=== PATIENT | female | born 1960 | race Two or more races ===

== ENCOUNTER 2022-06-28 15:31 | Emergency (ER) | payer BC, MEDICAID ==
[~2022-06-28] VITALS: Ht 149.9 cm; Wt 72.6 kg
[2022-06-28] MEDS ORDERED: ASPIRIN 325 MG TABLET PO ONE (16:15)
[2022-06-28] MEDS ORDERED: CEFP200T14 PO (16:20)
[2022-06-28] MEDS ORDERED: ASPIRIN 325 MG TABLET ONE (16:23)
[2022-06-28] MEDS ORDERED: nifedipine PO (16:27)
[2022-06-28] MEDS ORDERED: PANT40TA2 PO (16:27)
[2022-06-28] MEDS ORDERED: FURO80TA3 PO (16:27)
[2022-06-28] MEDS ORDERED: INSULIN GLARGINE (16:27)
[2022-06-28] MEDS ORDERED: [UNRECOGNIZED DRUG - OTHER] PO (16:27)
[2022-06-28 16:28] LABS: HEMATOCRIT 26.1 % (31.2-41.9); MEAN CORPUSCULAR HEMOGLOBIN 29.3 uug (24.7-32.8); MEAN CORPUSCULAR VOLUME 88.3 fL (75.5-95.3); PLATELET COUNT (AUTO) 487 K/uL (179-408)
[2022-06-28 16:47] LABS: CARBON DIOXIDE 21 mmol/L (21-32); CHLORIDE 108 mmol/L (98-107); CREATININE 1.9 mg/dL (0.6-1.3); GLUCOSE 191 mg/dL (74-106); POTASSIUM 4.5 mmol/L (3.5-5.1); UREA NITROGEN, BLOOD 54 mg/dL (7-18)
[2022-06-28 17:00] LABS: ALANINE AMINOTRANSFERASE 20 U/L (14-59); ALKALINE PHOSPHATASE 355 U/L (50-136); ASPARTATE AMINOTRANSFERASE 8 U/L (15-37); BILIRUBIN,DIRECT 0.1 mg/dL (0.0-0.2); BILIRUBIN,TOTAL 0.2 mg/dL (0.2-1.0); TOTAL PROTEIN, SERUM 6.7 g/dL (6.4-8.2)
[2022-06-28] MEDS ORDERED: FUROSEMIDE 40 MG/4 ML VIAL IV ONE (17:00)
[2022-06-28] MEDS ORDERED: FUROSEMIDE 40 MG/4 ML VIAL ONE (17:24)
--- NOTE | 2022-06-28 19:00 | NUR ---
Change of shift report from Gissell SAWANT
--- NOTE | 2022-06-28 20:34 | NUR ---
Dr Duvall ([facility]) on the line with Dr Marte
--- NOTE | 2022-06-28 20:35 | NUR ---
Patient accepted at [facility]. Will call us back for transfer information
--- NOTE | 2022-06-28 22:24 | NUR ---
Called [facility] for updates. Patient will be admitted to [address] 1[address]
--- NOTE | 2022-06-28 22:29 | NUR ---
report given to Ivonne SAWANT - [facility]
--- NOTE | 2022-06-28 22:34 | NUR ---
Called [facility]. ALS ambulance availability tomorrow at 1pm
--- NOTE | 2022-06-28 22:35 | NUR ---
Called [facility]. No Availability for ALS
--- NOTE | 2022-06-28 22:36 | NUR ---
Called [facility]. No ALS ambulance available
--- NOTE | 2022-06-28 22:38 | NUR ---
called [facility]. No ALS ambulance available
--- NOTE | 2022-06-28 22:44 | NUR ---
Dr Marte made aware no ALS ambulance available. Was told ok for S
--- NOTE | 2022-06-28 22:45 | NUR ---
Called [facility] ambulance for transportation to [facility]. ETA: [phone]
--- NOTE | 2022-06-29 01:11 | NUR ---
Patient Tranfers to outside Facility via [facility] Ambulance unit [id number] Physician: Dr Kumar Location: [facility]
== END 2022-06-29 01:19 | disposition short-term general hospital (02) ==
LOC: ER 15:36
DX: I50.9 Heart failure, unspecified (principal); R06.03 Acute respiratory distress; Z20.822 Contact with and (suspected) exposure to COVID-19; Z88.0 Allergy status to penicillin
CPT/HCPCS: 99285; 96374; 71045; 87426; 80076; 80048; 83880; 85025; 84484 ×3; 36415; J1940; A4663

== ENCOUNTER 2024-01-29 21:20 | Inpatient (IN) | payer BC ==
[~2024-01-29] VITALS: Ht 149.9 cm; Wt 53.5 kg
[~2024-01-29 21:20] MED LIST: CEFP200T14 PO; FURO80TA3 PO; INSULIN GLARGINE; PANT40TA2 PO; [UNRECOGNIZED DRUG - OTHER] PO; nifedipine PO
[2024-01-29] MEDS ORDERED: ESCI20TA PO (22:20)
[2024-01-29] MEDS ORDERED: HYDR100T27 PO (22:20)
[2024-01-29] MEDS ORDERED: ASPI81TA31 PO (22:20)
[2024-01-29] MEDS ORDERED: LOSA100T31 PO (22:20)
[2024-01-29] MEDS ORDERED: SPIR25TA6 PO (22:20)
[2024-01-29] MEDS ORDERED: BUME1TAB8 PO (22:20)
[2024-01-29] MEDS ORDERED: ATOR80TA PO (22:20)
[2024-01-29] MEDS ORDERED: CARV25TA2 PO (22:20)
[2024-01-29] MEDS ORDERED: NIFE90TA61 PO (22:20)
[2024-01-29] MEDS ORDERED: FERR-56 PO (22:20)
[2024-01-29] MEDS ORDERED: TICA90TA PO (22:20)
[2024-01-29 22:22] LABS: BASOPHILS # (AUTO) 0.1 K/UL (0.0-0.2); BASOPHILS % (AUTO) 0.8 % (0.0-2.0); EOSINOPHILS # (AUTO) 0.1 K/uL (0.0-0.7); HEMATOCRIT 24.6 % (31.2-41.9); HEMOGLOBIN 8.1 g/dL (10.9-14.3); LYMPHOCYTES # (AUTO) 0.7 K/uL (0.8-4.8); LYMPHOCYTES % (AUTO) 6.9 % (20.5-51.5); MEAN CORPUSCULAR HEMOGLOBIN 30.8 uug (24.7-32.8); MEAN CORPUSCULAR HGB CONC 33 g/dL (32.3-35.6); MEAN CORPUSCULAR VOLUME 93.3 fL (75.5-95.3); MONOCYTES # (AUTO) 0.8 K/uL (0.1-1.30); MONOCYTES % (AUTO) 7.7 % (0.0-11.0); NEUTROPHILS # (AUTO) 8.2 K/uL (1.8-8.9); NEUTROPHILS % (AUTO) 83.6 % (38.5-71.5); PLATELET COUNT (AUTO) 321 K/uL (179-408); RED BLOOD CELL COUNT(AUTO) 2.64 MIL/uL (3.63-4.92); RED CELL DISTRIBUTION WIDTH 16.9 % (12.3-17.7); WHITE BLOOD COUNT (AUTO) 9.8 K/uL (3.8-11.8)
[2024-01-29 22:23] LABS: DIFFERENTIAL COMMENT 1
[2024-01-29 22:33] LABS: CALCIUM 8.6 mg/dL (8.5-10.1); POTASSIUM 4.6 mmol/L (3.5-5.1)
[2024-01-29 22:45] LABS: ALBUMIN 2.7 g/dL (3.4-5.0); BILIRUBIN,TOTAL 0.6 mg/dL (0.2-1.0); TOTAL PROTEIN, SERUM 6.9 g/dL (6.4-8.2); URIC ACID 2.1 mg/dL (2.6-6.0)
[2024-01-29] MEDS ORDERED: HYDROCODONE/APAP 5-325MG TABLET ONE (22:50)
[2024-01-29] MEDS: HYDROCODONE/APAP 5-325MG TABLET PO ONE (22:53)
[2024-01-30] MEDS ORDERED: FUROSEMIDE 20 MG/2 ML VIAL ONE (00:43)
[2024-01-30] MEDS ORDERED: MORPHINE SULFATE 2 MG/1 ML DISP.SYRIN ONE (00:43)
[2024-01-30] MEDS: MORPHINE SULFATE 2 MG/1 ML DISP.SYRIN IV ONE (00:52)
[2024-01-30] MEDS: FUROSEMIDE 20 MG/2 ML VIAL IV ONE (00:52)
[2024-01-30] MEDS ORDERED: HYDROMORPHONE 1 MG/1 ML DISP.SYRIN ONE (03:47)
[2024-01-30] MEDS: HYDROMORPHONE 1 MG/1 ML DISP.SYRIN IV ONE (03:54)
[2024-01-30] MEDS ORDERED: REMEDY ESSENTIAL ZINC PASTE 113 GM TP PRN (05:00)
[2024-01-30 05:30] VITALS: BP 144/49; TEMP 98.7; O2SAT 98
[2024-01-30 06:37] LABS: BASOPHILS # (AUTO) 0.1 K/UL (0.0-0.2); EOSINOPHILS # (AUTO) 0.1 K/uL (0.0-0.7); EOSINOPHILS % (AUTO) 1.2 % (0.0-7.0); HEMATOCRIT 23.4 % (31.2-41.9); HEMOGLOBIN 7.8 g/dL (10.9-14.3); LYMPHOCYTES # (AUTO) 0.8 K/uL (0.8-4.8); LYMPHOCYTES % (AUTO) 8.2 % (20.5-51.5); MEAN CORPUSCULAR HEMOGLOBIN 31.1 uug (24.7-32.8); MEAN CORPUSCULAR HGB CONC 33 g/dL (32.3-35.6); MEAN CORPUSCULAR VOLUME 93.2 fL (75.5-95.3); MONOCYTES # (AUTO) 0.7 K/uL (0.1-1.30); MONOCYTES % (AUTO) 7.1 % (0.0-11.0); NEUTROPHILS # (AUTO) 7.7 K/uL (1.8-8.9); NEUTROPHILS % (AUTO) 82.5 % (38.5-71.5); PLATELET COUNT (AUTO) 305 K/uL (179-408); RED BLOOD CELL COUNT(AUTO) 2.51 MIL/uL (3.63-4.92); RED CELL DISTRIBUTION WIDTH 16.6 % (12.3-17.7); WHITE BLOOD COUNT (AUTO) 9.3 K/uL (3.8-11.8)
[2024-01-30 06:52] LABS: DIFFERENTIAL COMMENT 1
[2024-01-30 06:53] LABS: CALCIUM 8.8 mg/dL (8.5-10.1); CREATININE 3.4 mg/dL (0.6-1.3); MAGNESIUM 2.3 mg/dL (1.8-2.4); PHOSPHOROUS 2.2 mg/dL (2.5-4.9); POTASSIUM 4.5 mmol/L (3.5-5.1)
[2024-01-30 07:22] LABS: THYROID STIMULATING HORMONE 0.918 mIU/mL (0.358-3.740)
[2024-01-30 07:30] VITALS: BP 152/53; TEMP 98.6; O2SAT 99
[2024-01-30] MEDS: FUROSEMIDE 40 MG/4 ML VIAL IVP SCH (10:06)
[2024-01-30] MEDS: ESCITALOPRAM OXALATE 10 MG TABLET PO SCH (10:06)
[2024-01-30] MEDS: PANTOPRAZOLE SODIUM 40 MG VIAL IV SCH (10:06)
[2024-01-30] MEDS: ASPIRIN 81 MG TAB.CHEW PO SCH (10:06)
[2024-01-30] MEDS: hydrALAZINE HCL 50 MG TABLET PO SCH (10:08)
[2024-01-30] MEDS: HEPARIN SODIUM,PORCINE 5,000 UNITS/ML VIAL SQ SCH (10:08)
[2024-01-30] MEDS: NIFEdipine XL 90 MG TABSR PO SCH (10:09)
[2024-01-30] MEDS: CARVEDILOL 25 MG TABLET PO SCH (10:09)
[2024-01-30 10:19] LABS: IRON, SERUM 21 ug/dL (50-175)
[2024-01-30] MEDS: LOSARTAN POTASSIUM 50 MG TABLET PO SCH (11:19)
[2024-01-30 11:40] VITALS: BP 141/46; TEMP 99.5; O2SAT 97
[2024-01-30 12:00] VITALS: O2SAT 98
[2024-01-30] MEDS: MORPHINE SULFATE 4 MG/1 ML DISP.SYRIN IV PRN (13:29)
[2024-01-30] MEDS: ONDANSETRON 4 MG/2 ML VIAL IV PRN ×2 (13:29→18:14)
[2024-01-30] MEDS ORDERED: PROPOFOL 200 MG/20 ML BOTTLE ONE (15:35)
[2024-01-30 16:00] VITALS: BP 116/48; TEMP 98.7; O2SAT 99
[2024-01-30] MEDS ORDERED: ACETAMINOPHEN 650 MG SUPP.RECT RC PRN (17:15)
[2024-01-30] MEDS: METOCLOPRAMIDE HCL 10 MG/2 ML VIAL IV ONE (18:14)
[2024-01-30 20:00] VITALS: BP 131/59; TEMP 97.4; O2SAT 98
[2024-01-30] MEDS: ATORVASTATIN 40 MG TABLET PO SCH (21:57)
[2024-01-31] VITALS (11 sets, daily range): BP systolic 83–137; BP diastolic 34–46; TEMP 97.3–98.5; O2SAT 98–100
[2024-01-31 08:17] LABS: BASOPHILS # (AUTO) 0.1 K/UL (0.0-0.2); BASOPHILS % (AUTO) 1.3 % (0.0-2.0); EOSINOPHILS # (AUTO) 0.2 K/uL (0.0-0.7); HEMATOCRIT 23.4 % (31.2-41.9); HEMOGLOBIN 7.8 g/dL (10.9-14.3); LYMPHOCYTES # (AUTO) 0.6 K/uL (0.8-4.8); LYMPHOCYTES % (AUTO) 6.8 % (20.5-51.5); MEAN CORPUSCULAR HEMOGLOBIN 31.2 uug (24.7-32.8); MEAN CORPUSCULAR HGB CONC 34 g/dL (32.3-35.6); MEAN CORPUSCULAR VOLUME 93.1 fL (75.5-95.3); MONOCYTES # (AUTO) 0.7 K/uL (0.1-1.30); MONOCYTES % (AUTO) 7.9 % (0.0-11.0); NEUTROPHILS # (AUTO) 7.2 K/uL (1.8-8.9); PLATELET COUNT (AUTO) 317 K/uL (179-408); RED BLOOD CELL COUNT(AUTO) 2.51 MIL/uL (3.63-4.92); RED CELL DISTRIBUTION WIDTH 16.2 % (12.3-17.7); WHITE BLOOD COUNT (AUTO) 8.8 K/uL (3.8-11.8)
[2024-01-31 08:29] LABS: CREATININE 2.6 mg/dL (0.6-1.3); MAGNESIUM 2.2 mg/dL (1.8-2.4); PHOSPHOROUS 3.3 mg/dL (2.5-4.9); POTASSIUM 4.1 mmol/L (3.5-5.1)
[2024-01-31 08:31] LABS: DIFFERENTIAL COMMENT 1
[2024-01-31] MEDS: hydrALAZINE HCL 50 MG TABLET PO SCH (09:00)
[2024-01-31] MEDS: LOSARTAN POTASSIUM 50 MG TABLET PO SCH (09:38)
[2024-01-31] MEDS ORDERED: FENTANYL CITRATE 100 MCG/2 ML AMPUL ONE ×2 (13:14→15:48)
[2024-01-31] MEDS ORDERED: MIDAZOLAM HCL 2 MG/2 ML VIAL ONE (13:15)
[2024-01-31] MEDS ORDERED: VANCOMYCIN 1000 MG VIAL ONE (13:54)
[2024-01-31] MEDS ORDERED: CLINDAMYCIN 600 MG PIGGYBACK**ER OMNI IV ONE (14:09)
[2024-01-31 16:21] LABS: BASOPHILS # (AUTO) 0.1 K/UL (0.0-0.2); BASOPHILS % (AUTO) 1.4 % (0.0-2.0); EOSINOPHILS # (AUTO) 0.1 K/uL (0.0-0.7); EOSINOPHILS % (AUTO) 1.6 % (0.0-7.0); LYMPHOCYTES # (AUTO) 0.7 K/uL (0.8-4.8); LYMPHOCYTES % (AUTO) 9.3 % (20.5-51.5); MEAN CORPUSCULAR HEMOGLOBIN 30.6 uug (24.7-32.8); MEAN CORPUSCULAR HGB CONC 33 g/dL (32.3-35.6); MEAN CORPUSCULAR VOLUME 93.7 fL (75.5-95.3); MONOCYTES # (AUTO) 0.7 K/uL (0.1-1.30); MONOCYTES % (AUTO) 9.3 % (0.0-11.0); NEUTROPHILS # (AUTO) 5.9 K/uL (1.8-8.9); NEUTROPHILS % (AUTO) 78.4 % (38.5-71.5); PLATELET COUNT (AUTO) 291 K/uL (179-408); WHITE BLOOD COUNT (AUTO) 7.6 K/uL (3.8-11.8)
[2024-01-31 16:30] LABS: DIFFERENTIAL COMMENT 1; RED BLOOD CELL COUNT(AUTO) 2.24 MIL/uL (3.63-4.92)
[2024-01-31 16:31] LABS: HEMOGLOBIN 6.9 g/dL (10.9-14.3)
[2024-01-31 16:34] LABS: LYMPHOCYTES % (MANUAL) 0 % (20-40); NEUTROPHILS % (MANUAL) 0 % (42-75)
[2024-01-31] MEDS ORDERED: ALBUMIN HUMAN 5% 250 ML ONE (16:43)
[2024-01-31] MEDS: IV D5W-0.45% NS +20 KCL 1,000 ML IV PRN (18:50)
[2024-01-31] MEDS: NIFEdipine XL 90 MG TABSR PO SCH (21:00)
[2024-01-31] MEDS: CLINDAMYCIN PHOSPHATE IV 600 MG in IV DEXTROSE 5% 100 ML IV SCH (21:25)
[2024-02-01] VITALS (10 sets, daily range): BP systolic 77–143; BP diastolic 37–54; TEMP 97.7–101.2; O2SAT 97–99
[2024-02-01 08:13] LABS: BASOPHILS # (AUTO) 0.1 K/UL (0.0-0.2); BASOPHILS % (AUTO) 1.1 % (0.0-2.0); EOSINOPHILS % (AUTO) 0.1 % (0.0-7.0); HEMATOCRIT 22.9 % (31.2-41.9); LYMPHOCYTES # (AUTO) 0.5 K/uL (0.8-4.8); LYMPHOCYTES % (AUTO) 5.8 % (20.5-51.5); MEAN CORPUSCULAR HEMOGLOBIN 30.3 uug (24.7-32.8); MEAN CORPUSCULAR HGB CONC 35 g/dL (32.3-35.6); MEAN CORPUSCULAR VOLUME 87.3 fL (75.5-95.3); MONOCYTES # (AUTO) 1.1 K/uL (0.1-1.30); MONOCYTES % (AUTO) 11.2 % (0.0-11.0); NEUTROPHILS # (AUTO) 7.7 K/uL (1.8-8.9); NEUTROPHILS % (AUTO) 81.8 % (38.5-71.5); PLATELET COUNT (AUTO) 219 K/uL (179-408); RED BLOOD CELL COUNT(AUTO) 2.63 MIL/uL (3.63-4.92); RED CELL DISTRIBUTION WIDTH 15.2 % (12.3-17.7); WHITE BLOOD COUNT (AUTO) 9.4 K/uL (3.8-11.8)
[2024-02-01 08:31] LABS: DIFFERENTIAL COMMENT 1
[2024-02-01 08:36] LABS: ALBUMIN 2.2 g/dL (3.4-5.0); BILIRUBIN,TOTAL 0.9 mg/dL (0.2-1.0); CALCIUM 7.9 mg/dL (8.5-10.1); POTASSIUM 3.7 mmol/L (3.5-5.1); TOTAL PROTEIN, SERUM 5.8 g/dL (6.4-8.2)
[2024-02-01] MEDS: ACETAMINOPHEN 325 MG TABLET PO PRN (08:38)
[2024-02-01] MEDS: HEPARIN SODIUM,PORCINE 5,000 UNITS/ML VIAL SQ SCH (09:00)
[2024-02-01 12:07] LABS: HEPATITIS B SURFACE AB, QUAL Reactive (.); HEPATITIS B SURFACE AG Negative (Negative)
[2024-02-01] MEDS: DOCUSATE SODIUM 100 MG CAPSULE PO SCH (17:28)
[2024-02-02] VITALS (62 sets, daily range): BP systolic 60–156; BP diastolic 11–93; TEMP 98.1–100.1; O2SAT 97–100
[2024-02-02] MEDS: MIDODRINE HCL 5 MG TABLET PO ONE (04:51)
[2024-02-02] MEDS: IV NORMAL SALINE 500 ML IV ONE (04:52)
[2024-02-02 05:31] LABS: LYMPHOCYTES # (AUTO) 0.7 K/uL (0.8-4.8); MONOCYTES # (AUTO) 1.1 K/uL (0.1-1.30)
[2024-02-02 05:32] LABS: BASOPHILS % (AUTO) 0.4 % (0.0-2.0); EOSINOPHILS % (AUTO) 0.5 % (0.0-7.0); LYMPHOCYTES % (AUTO) 7.1 % (20.5-51.5); MEAN CORPUSCULAR HGB CONC 35 g/dL (32.3-35.6); MEAN CORPUSCULAR VOLUME 88.7 fL (75.5-95.3); MONOCYTES % (AUTO) 11.8 % (0.0-11.0); NEUTROPHILS # (AUTO) 7.5 K/uL (1.8-8.9); NEUTROPHILS % (AUTO) 80.2 % (38.5-71.5); PLATELET COUNT (AUTO) 183 K/uL (179-408); RED CELL DISTRIBUTION WIDTH 15.2 % (12.3-17.7); WHITE BLOOD COUNT (AUTO) 9.3 K/uL (3.8-11.8)
[2024-02-02 05:41] LABS: RED BLOOD CELL COUNT(AUTO) 1.93 MIL/uL (3.63-4.92)
[2024-02-02 05:44] LABS: HEMATOCRIT 17.1 % (31.2-41.9)
[2024-02-02 05:45] LABS: DIFFERENTIAL COMMENT 1
[2024-02-02] MEDS: IV NS 1000 ML 1,000 ML IV ONE (06:21)
[2024-02-02] MEDS: ALBUMIN HUMAN 25% 50 ML IV ONE (06:22)
[2024-02-02] MEDS: PANTOPRAZOLE SODIUM 40 MG TABLET.DR PO SCH (06:22)
[2024-02-02 06:26] LABS: BAND % (MANUAL) 2 % (0-10); LYMPHOCYTES % (MANUAL) 12 % (20-40); MONOCYTES % (MANUAL) 6 % (2-10); NEUTROPHILS % (MANUAL) 80 % (42-75)
[2024-02-02 06:27] LABS: HYPOCHROMASIA 1+; PLATELET ESTIMATE ADEQUATE
[2024-02-02 06:28] LABS: ANISOCYTOSIS 1+
[2024-02-02 09:16] LABS: CALCIUM 7.6 mg/dL (8.5-10.1); CREATININE 3.4 mg/dL (0.6-1.3); POTASSIUM 4.3 mmol/L (3.5-5.1)
[2024-02-02] MEDS: IV NORMAL SALINE 500 ML BAG IV ONE (09:20)
[2024-02-02 09:22] LABS: ALBUMIN 1.9 g/dL (3.4-5.0); BILIRUBIN,TOTAL 0.6 mg/dL (0.2-1.0); TOTAL PROTEIN, SERUM 5.3 g/dL (6.4-8.2)
[2024-02-02] MEDS: NOREPINEPHRINE BITARTRATE 8 MG in IV NORMAL SALINE 242 ML IV PRN (09:25)
[2024-02-02] MEDS: PHYTONADIONE 10 MG/1 ML AMPUL SQ ONE ×2 (11:00→11:15)
[2024-02-02] MEDS ORDERED: IOHEXOL 300MG/ML 100 ML INFUS..BTL ONE (14:04)
[2024-02-02] MEDS ORDERED: IV NORMAL SALINE 250 ML IV ONE (14:04)
[2024-02-02] MEDS ORDERED: SWABABLE VALVE TRANSFER SET EA MC ONE (14:04)
[2024-02-02] MEDS: MORPHINE SULFATE 2 MG/1 ML DISP.SYRIN IV PRN (14:49)
[2024-02-02 16:27] LABS: HEMATOCRIT 27.8 % (31.2-41.9); HEMOGLOBIN 9.5 g/dL (10.9-14.3)
[2024-02-02] MEDS: MAGNESIUM HYDROXIDE 30 ML LIQUID UDC PO PRN (21:18)
[2024-02-02 22:12] LABS: HEMATOCRIT 26.6 % (31.2-41.9); HEMOGLOBIN 9.3 g/dL (10.9-14.3)
[2024-02-03] VITALS (42 sets, daily range): BP systolic 116–141; BP diastolic 36–78; TEMP 97.5–98; O2SAT 97–100
[2024-02-03 00:49] LABS: HEMATOCRIT 25.6 % (31.2-41.9); HEMOGLOBIN 8.8 g/dL (10.9-14.3)
[2024-02-03 05:27] LABS: BASOPHILS # (AUTO) 0.1 K/UL (0.0-0.2); BASOPHILS % (AUTO) 0.8 % (0.0-2.0); EOSINOPHILS # (AUTO) 0.1 K/uL (0.0-0.7); EOSINOPHILS % (AUTO) 0.6 % (0.0-7.0); HEMATOCRIT 24.7 % (31.2-41.9); HEMOGLOBIN 8.7 g/dL (10.9-14.3); LYMPHOCYTES # (AUTO) 0.5 K/uL (0.8-4.8); LYMPHOCYTES % (AUTO) 5.2 % (20.5-51.5); MEAN CORPUSCULAR HEMOGLOBIN 30.7 uug (24.7-32.8); MEAN CORPUSCULAR HGB CONC 35 g/dL (32.3-35.6); MEAN CORPUSCULAR VOLUME 87.2 fL (75.5-95.3); MONOCYTES # (AUTO) 0.9 K/uL (0.1-1.30); MONOCYTES % (AUTO) 8.3 % (0.0-11.0); NEUTROPHILS # (AUTO) 8.9 K/uL (1.8-8.9); NEUTROPHILS % (AUTO) 85.1 % (38.5-71.5); PLATELET COUNT (AUTO) 235 K/uL (179-408); RED BLOOD CELL COUNT(AUTO) 2.83 MIL/uL (3.63-4.92); WHITE BLOOD COUNT (AUTO) 10.4 K/uL (3.8-11.8)
[2024-02-03 06:25] LABS: CALCIUM 7.7 mg/dL (8.5-10.1); CREATININE 2.3 mg/dL (0.6-1.3); DIFFERENTIAL COMMENT 1; PHOSPHOROUS 3.5 mg/dL (2.5-4.9); POTASSIUM 3.5 mmol/L (3.5-5.1)
[2024-02-03 08:10] LABS: HEMATOCRIT 24.4 % (31.2-41.9); HEMOGLOBIN 8.6 g/dL (10.9-14.3)
[2024-02-03] MEDS: HYDROCODONE/APAP 10-325 MG TABLET PO PRN (09:16)
[2024-02-03] MEDS: PANTOPRAZOLE SODIUM 40 MG VIAL IV SCH (12:16)
[2024-02-03] MEDS: ZOLPIDEM 5 MG TABLET PO PRN (23:01)
[2024-02-04 07:36] LABS: BASOPHILS % (AUTO) 0.5 % (0.0-2.0); EOSINOPHILS # (AUTO) 0.3 K/uL (0.0-0.7); EOSINOPHILS % (AUTO) 3.3 % (0.0-7.0); HEMATOCRIT 22.3 % (31.2-41.9); HEMOGLOBIN 7.8 g/dL (10.9-14.3); LYMPHOCYTES # (AUTO) 0.7 K/uL (0.8-4.8); LYMPHOCYTES % (AUTO) 8.5 % (20.5-51.5); MEAN CORPUSCULAR HGB CONC 35 g/dL (32.3-35.6); MEAN CORPUSCULAR VOLUME 88.2 fL (75.5-95.3); MONOCYTES # (AUTO) 0.7 K/uL (0.1-1.30); MONOCYTES % (AUTO) 9.1 % (0.0-11.0); NEUTROPHILS # (AUTO) 6.4 K/uL (1.8-8.9); NEUTROPHILS % (AUTO) 78.6 % (38.5-71.5); PLATELET COUNT (AUTO) 232 K/uL (179-408); RED BLOOD CELL COUNT(AUTO) 2.53 MIL/uL (3.63-4.92); WHITE BLOOD COUNT (AUTO) 8.1 K/uL (3.8-11.8)
[2024-02-04 07:44] LABS: DIFFERENTIAL COMMENT 1
[2024-02-04 07:54] LABS: CREATININE 3.5 mg/dL (0.6-1.3); MAGNESIUM 2.4 mg/dL (1.8-2.4); PHOSPHOROUS 3.3 mg/dL (2.5-4.9); POTASSIUM 4.3 mmol/L (3.5-5.1)
[2024-02-04 08:19] VITALS: BP 139/42; TEMP 97.9; O2SAT 99
[2024-02-04 12:00] VITALS: BP 147/50; TEMP 98.3; O2SAT 99
[2024-02-04 15:49] VITALS: BP 142/61; TEMP 98.7; O2SAT 99
[2024-02-04 20:20] LABS: HEMATOCRIT 25.9 % (31.2-41.9); HEMOGLOBIN 8.8 g/dL (10.9-14.3)
[2024-02-04 23:42] VITALS: O2SAT 99
[2024-02-05] VITALS (8 sets, daily range): BP systolic 113–182; BP diastolic 54–62; TEMP 97.8–99.1; O2SAT 97–100
[2024-02-05] MEDS: ENALAPRILAT DIHYDRATE 1.25 MG/1 ML VIAL IV PRN (03:58)
[2024-02-05 07:09] LABS: BASOPHILS # (AUTO) 0.1 K/UL (0.0-0.2); BASOPHILS % (AUTO) 0.7 % (0.0-2.0); EOSINOPHILS # (AUTO) 0.1 K/uL (0.0-0.7); EOSINOPHILS % (AUTO) 1.5 % (0.0-7.0); HEMOGLOBIN 8.9 g/dL (10.9-14.3); LYMPHOCYTES # (AUTO) 0.5 K/uL (0.8-4.8); LYMPHOCYTES % (AUTO) 5.7 % (20.5-51.5); MEAN CORPUSCULAR HEMOGLOBIN 30.9 uug (24.7-32.8); MEAN CORPUSCULAR HGB CONC 34 g/dL (32.3-35.6); MEAN CORPUSCULAR VOLUME 89.7 fL (75.5-95.3); MONOCYTES # (AUTO) 0.9 K/uL (0.1-1.30); MONOCYTES % (AUTO) 9.1 % (0.0-11.0); NEUTROPHILS # (AUTO) 7.9 K/uL (1.8-8.9); PLATELET COUNT (AUTO) 308 K/uL (179-408); RED CELL DISTRIBUTION WIDTH 15.2 % (12.3-17.7); WHITE BLOOD COUNT (AUTO) 9.5 K/uL (3.8-11.8)
[2024-02-05 07:40] LABS: CALCIUM 8.5 mg/dL (8.5-10.1); CREATININE 2.6 mg/dL (0.6-1.3); MAGNESIUM 2.5 mg/dL (1.8-2.4); PHOSPHOROUS 2.6 mg/dL (2.5-4.9); POTASSIUM 4.4 mmol/L (3.5-5.1)
[2024-02-05 07:49] LABS: DIFFERENTIAL COMMENT 1
[2024-02-05] MEDS: DOCUSATE SODIUM 100 MG CAPSULE PO SCH (09:00)
[2024-02-05] MEDS: MIRALAX 17 GM POWD.PACK PO SCH (09:06)
[2024-02-05 09:17] LABS: *OCCULT BLOOD STOOL POSITIVE (NEGATIVE)
[2024-02-06] VITALS (7 sets, daily range): BP systolic 148–197; BP diastolic 55–93; TEMP 97.6–98.7; O2SAT 96–100
[2024-02-06] MEDS: CARVEDILOL 25 MG TABLET PO SCH (08:15)
[2024-02-06] MEDS ORDERED: PROPOFOL 200 MG/20 ML BOTTLE ONE (10:00)
[2024-02-07] VITALS (7 sets, daily range): BP systolic 93–190; BP diastolic 35–83; TEMP 97.6–99.5; O2SAT 95–98
[2024-02-07 08:01] LABS: BASOPHILS # (AUTO) 0.1 K/UL (0.0-0.2); EOSINOPHILS # (AUTO) 0.2 K/uL (0.0-0.7); EOSINOPHILS % (AUTO) 2.7 % (0.0-7.0); HEMATOCRIT 26.4 % (31.2-41.9); HEMOGLOBIN 9.1 g/dL (10.9-14.3); LYMPHOCYTES # (AUTO) 0.8 K/uL (0.8-4.8); LYMPHOCYTES % (AUTO) 9.1 % (20.5-51.5); MEAN CORPUSCULAR HEMOGLOBIN 30.6 uug (24.7-32.8); MEAN CORPUSCULAR HGB CONC 35 g/dL (32.3-35.6); MEAN CORPUSCULAR VOLUME 88.7 fL (75.5-95.3); MONOCYTES # (AUTO) 0.7 K/uL (0.1-1.30); MONOCYTES % (AUTO) 7.7 % (0.0-11.0); NEUTROPHILS # (AUTO) 7.1 K/uL (1.8-8.9); NEUTROPHILS % (AUTO) 79.5 % (38.5-71.5); PLATELET COUNT (AUTO) 383 K/uL (179-408); RED BLOOD CELL COUNT(AUTO) 2.98 MIL/uL (3.63-4.92); RED CELL DISTRIBUTION WIDTH 14.7 % (12.3-17.7); WHITE BLOOD COUNT (AUTO) 8.9 K/uL (3.8-11.8)
[2024-02-07 08:02] LABS: DIFFERENTIAL COMMENT 1
[2024-02-07 08:10] LABS: CALCIUM 8.3 mg/dL (8.5-10.1); CREATININE 2.8 mg/dL (0.6-1.3); POTASSIUM 4.2 mmol/L (3.5-5.1)
[2024-02-07] MEDS: NIFEdipine XL 90 MG TABSR PO SCH (08:15)
[2024-02-07] MEDS: LOSARTAN POTASSIUM 50 MG TABLET PO SCH (08:45)
[2024-02-07 18:50] LABS: HEMATOCRIT 25.3 % (31.2-41.9); HEMOGLOBIN 8.6 g/dL (10.9-14.3)
[2024-02-08] VITALS (9 sets, daily range): BP systolic 141–182; BP diastolic 50–68; TEMP 97.6–99; O2SAT 96–99
[2024-02-08 07:16] LABS: BASOPHILS # (AUTO) 0.1 K/UL (0.0-0.2); BASOPHILS % (AUTO) 0.9 % (0.0-2.0); EOSINOPHILS # (AUTO) 0.3 K/uL (0.0-0.7); EOSINOPHILS % (AUTO) 3.5 % (0.0-7.0); HEMATOCRIT 24.7 % (31.2-41.9); HEMOGLOBIN 8.6 g/dL (10.9-14.3); LYMPHOCYTES # (AUTO) 1.1 K/uL (0.8-4.8); LYMPHOCYTES % (AUTO) 11.4 % (20.5-51.5); MEAN CORPUSCULAR HEMOGLOBIN 30.5 uug (24.7-32.8); MEAN CORPUSCULAR HGB CONC 35 g/dL (32.3-35.6); MEAN CORPUSCULAR VOLUME 87.4 fL (75.5-95.3); MONOCYTES # (AUTO) 0.8 K/uL (0.1-1.30); MONOCYTES % (AUTO) 8.7 % (0.0-11.0); NEUTROPHILS # (AUTO) 7.2 K/uL (1.8-8.9); NEUTROPHILS % (AUTO) 75.5 % (38.5-71.5); PLATELET COUNT (AUTO) 396 K/uL (179-408); RED BLOOD CELL COUNT(AUTO) 2.82 MIL/uL (3.63-4.92); RED CELL DISTRIBUTION WIDTH 14.1 % (12.3-17.7); WHITE BLOOD COUNT (AUTO) 9.5 K/uL (3.8-11.8)
[2024-02-08 07:21] LABS: DIFFERENTIAL COMMENT 1
[2024-02-08 07:40] LABS: ALBUMIN 1.8 g/dL (3.4-5.0); BILIRUBIN,TOTAL 0.5 mg/dL (0.2-1.0); CALCIUM 8.1 mg/dL (8.5-10.1); CREATININE 3.4 mg/dL (0.6-1.3); MAGNESIUM 2.5 mg/dL (1.8-2.4); PHOSPHOROUS 2.6 mg/dL (2.5-4.9); POTASSIUM 4.1 mmol/L (3.5-5.1); TOTAL PROTEIN, SERUM 5.9 g/dL (6.4-8.2)
[2024-02-08] MEDS ORDERED: PANT40TA2 PO (12:53)
[2024-02-08] MEDS ORDERED: HYDR-3972 PO (12:53)
[2024-02-08] MEDS ORDERED: DOCU-141 PO (12:53)
[2024-02-08] MEDS: hydrALAZINE HCL 20 MG/1 ML VIAL IV ONE (18:29)
[2024-02-09 06:00] VITALS: BP 182/68; TEMP 98.5; O2SAT 100
[2024-02-09 12:00] VITALS: BP 178/60; TEMP 98; O2SAT 98
[2024-02-09 15:55] VITALS: O2SAT 99
[2024-02-09] MEDS ORDERED: NIFEdipine XL 90 MG TABSR PO SCH (16:00)
[2024-02-09 16:07] VITALS: BP 166/60; TEMP 98.3; O2SAT 99
[2024-02-09 20:00] VITALS: BP 167/54; TEMP 98.9; O2SAT 100
[2024-02-10] VITALS (7 sets, daily range): BP systolic 139–182; BP diastolic 48–65; TEMP 98–99; O2SAT 97–99
[2024-02-10] MEDS: BISACODYL 10 MG SUPP.RECT RC PRN (05:37)
[2024-02-10] MEDS: hydrALAZINE HCL 20 MG/1 ML VIAL IV PRN (06:11)
[2024-02-10] MEDS: hydrALAZINE HCL 50 MG TABLET PO SCH (06:30)
[2024-02-10] MEDS: NIFEdipine XL 90 MG TABSR PO SCH (20:47)
[2024-02-11 05:48] VITALS: BP 112/48; TEMP 97.9; O2SAT 99
[2024-02-11 11:16] VITALS: BP 107/71; TEMP 98; O2SAT 97
[2024-02-11 15:40] VITALS: BP 117/48; TEMP 98; O2SAT 100
[2024-02-11 16:04] VITALS: O2SAT 98
[2024-02-11 16:36] LABS: CREATININE 3.7 mg/dL (0.6-1.3); POTASSIUM 4.4 mmol/L (3.5-5.1)
[2024-02-11 20:41] VITALS: BP 148/59; TEMP 98.2; O2SAT 98
[2024-02-12] VITALS (8 sets, daily range): BP systolic 95–151; BP diastolic 41–66; TEMP 97.9–98.6; O2SAT 97–100
[2024-02-12 07:39] LABS: BASOPHILS # (AUTO) 0.2 K/UL (0.0-0.2); BASOPHILS % (AUTO) 1.8 % (0.0-2.0); EOSINOPHILS # (AUTO) 0.3 K/uL (0.0-0.7); EOSINOPHILS % (AUTO) 3.4 % (0.0-7.0); HEMATOCRIT 25.2 % (31.2-41.9); LYMPHOCYTES # (AUTO) 0.9 K/uL (0.8-4.8); LYMPHOCYTES % (AUTO) 9.9 % (20.5-51.5); MEAN CORPUSCULAR HEMOGLOBIN 31.2 uug (24.7-32.8); MEAN CORPUSCULAR HGB CONC 36 g/dL (32.3-35.6); MEAN CORPUSCULAR VOLUME 87.5 fL (75.5-95.3); MONOCYTES # (AUTO) 0.7 K/uL (0.1-1.30); MONOCYTES % (AUTO) 7.9 % (0.0-11.0); NEUTROPHILS # (AUTO) 6.6 K/uL (1.8-8.9); PLATELET COUNT (AUTO) 418 K/uL (179-408); RED BLOOD CELL COUNT(AUTO) 2.88 MIL/uL (3.63-4.92); RED CELL DISTRIBUTION WIDTH 14.5 % (12.3-17.7); WHITE BLOOD COUNT (AUTO) 8.6 K/uL (3.8-11.8)
[2024-02-12 07:44] LABS: DIFFERENTIAL COMMENT 1
[2024-02-12 08:04] LABS: CALCIUM 8.3 mg/dL (8.5-10.1); CREATININE 2.5 mg/dL (0.6-1.3); MAGNESIUM 2.1 mg/dL (1.8-2.4); PHOSPHOROUS 2.5 mg/dL (2.5-4.9); POTASSIUM 3.8 mmol/L (3.5-5.1)
[2024-02-13 04:29] VITALS: O2SAT 99
[2024-02-13 05:53] VITALS: BP 99/60; TEMP 98.6
[2024-02-13 12:00] VITALS: BP 120/50; TEMP 97.6
[2024-02-13 14:17] VITALS: O2SAT 99
[2024-02-13 16:00] VITALS: BP 139/52; TEMP 98; O2SAT 99
[2024-02-13 20:52] VITALS: BP 138/51; TEMP 98.7; O2SAT 99
[2024-02-14 04:07] VITALS: O2SAT 99
[2024-02-14 04:25] VITALS: BP 137/47; TEMP 98.4; O2SAT 98
[2024-02-14 07:06] LABS: BASOPHILS # (AUTO) 0.2 K/UL (0.0-0.2); BASOPHILS % (AUTO) 2.1 % (0.0-2.0); EOSINOPHILS # (AUTO) 0.3 K/uL (0.0-0.7); EOSINOPHILS % (AUTO) 2.9 % (0.0-7.0); HEMATOCRIT 23.8 % (31.2-41.9); HEMOGLOBIN 8.4 g/dL (10.9-14.3); LYMPHOCYTES % (AUTO) 11.1 % (20.5-51.5); MEAN CORPUSCULAR HEMOGLOBIN 31.1 uug (24.7-32.8); MEAN CORPUSCULAR HGB CONC 35 g/dL (32.3-35.6); MEAN CORPUSCULAR VOLUME 87.7 fL (75.5-95.3); MONOCYTES # (AUTO) 0.6 K/uL (0.1-1.30); MONOCYTES % (AUTO) 7.3 % (0.0-11.0); NEUTROPHILS # (AUTO) 6.8 K/uL (1.8-8.9); NEUTROPHILS % (AUTO) 76.6 % (38.5-71.5); PLATELET COUNT (AUTO) 365 K/uL (179-408); RED BLOOD CELL COUNT(AUTO) 2.71 MIL/uL (3.63-4.92); RED CELL DISTRIBUTION WIDTH 14.7 % (12.3-17.7); WHITE BLOOD COUNT (AUTO) 8.9 K/uL (3.8-11.8)
[2024-02-14 07:22] LABS: CALCIUM 8.2 mg/dL (8.5-10.1); CREATININE 2.4 mg/dL (0.6-1.3); PHOSPHOROUS 2.8 mg/dL (2.5-4.9); POTASSIUM 3.7 mmol/L (3.5-5.1)
[2024-02-14 07:30] LABS: DIFFERENTIAL COMMENT 1
[2024-02-14 11:52] VITALS: BP 104/44; TEMP 98.2; O2SAT 100
[2024-02-14 16:19] VITALS: BP 126/46; TEMP 98.2; O2SAT 99
[2024-02-14] MEDS: NEPRO (VANILLA) 237 ML CAN PO SCH (16:42)
[2024-02-14] MEDS: PANTOPRAZOLE SODIUM 40 MG TABLET.DR PO SCH (17:27)
[2024-02-14 20:00] VITALS: BP 126/57; TEMP 99.2; O2SAT 98
[2024-02-14 22:11] VITALS: O2SAT 99
[2024-02-15 06:00] VITALS: BP 142/58; TEMP 98.1; O2SAT 99
[2024-02-15 06:52] LABS: BASOPHILS # (AUTO) 0.2 K/UL (0.0-0.2); BASOPHILS % (AUTO) 2.1 % (0.0-2.0); EOSINOPHILS # (AUTO) 0.3 K/uL (0.0-0.7); EOSINOPHILS % (AUTO) 3.7 % (0.0-7.0); HEMATOCRIT 26.8 % (31.2-41.9); LYMPHOCYTES # (AUTO) 1.1 K/uL (0.8-4.8); LYMPHOCYTES % (AUTO) 12.4 % (20.5-51.5); MEAN CORPUSCULAR HEMOGLOBIN 29.7 uug (24.7-32.8); MEAN CORPUSCULAR HGB CONC 34 g/dL (32.3-35.6); MEAN CORPUSCULAR VOLUME 88.7 fL (75.5-95.3); MONOCYTES # (AUTO) 0.6 K/uL (0.1-1.30); NEUTROPHILS # (AUTO) 6.5 K/uL (1.8-8.9); NEUTROPHILS % (AUTO) 74.8 % (38.5-71.5); PLATELET COUNT (AUTO) 353 K/uL (179-408); RED BLOOD CELL COUNT(AUTO) 3.02 MIL/uL (3.63-4.92); RED CELL DISTRIBUTION WIDTH 14.9 % (12.3-17.7); WHITE BLOOD COUNT (AUTO) 8.6 K/uL (3.8-11.8)
[2024-02-15 07:00] LABS: CALCIUM 8.1 mg/dL (8.5-10.1); CREATININE 3.2 mg/dL (0.6-1.3); POTASSIUM 4.4 mmol/L (3.5-5.1)
[2024-02-15 07:06] LABS: DIFFERENTIAL COMMENT 1
[2024-02-15] MEDS: IV NORMAL SALINE 250 ML IV ONE ×2 (09:36→11:41)
[2024-02-15] MEDS ORDERED: IV NORMAL SALINE 500 ML BAG IV ONE (11:30)
[2024-02-15 11:58] VITALS: BP 90/31; TEMP 97.9; O2SAT 98
[2024-02-15 16:19] VITALS: BP 116/46; TEMP 98.8; O2SAT 99
[2024-02-15 20:00] VITALS: BP 154/51; TEMP 98.6; O2SAT 96
[2024-02-15] MEDS: SIMETHICONE 80 MG TAB.CHEW PO SCH (21:00)
[2024-02-15] MEDS: METOCLOPRAMIDE HCL 10 MG/2 ML VIAL IV SCH (21:53)
[2024-02-15] MEDS ORDERED: METOCLOPRAMIDE HCL 10 MG/2 ML VIAL IV SCH ×2 (22:00)
[2024-02-16 05:05] VITALS: O2SAT 99
[2024-02-16 06:00] VITALS: BP 182/60; TEMP 98.4; O2SAT 99
[2024-02-16 07:44] LABS: BASOPHILS # (AUTO) 0.2 K/UL (0.0-0.2); BASOPHILS % (AUTO) 2.3 % (0.0-2.0); EOSINOPHILS # (AUTO) 0.2 K/uL (0.0-0.7); EOSINOPHILS % (AUTO) 3.1 % (0.0-7.0); HEMATOCRIT 24.9 % (31.2-41.9); HEMOGLOBIN 8.5 g/dL (10.9-14.3); LYMPHOCYTES # (AUTO) 0.9 K/uL (0.8-4.8); LYMPHOCYTES % (AUTO) 11.8 % (20.5-51.5); MEAN CORPUSCULAR HEMOGLOBIN 30.4 uug (24.7-32.8); MEAN CORPUSCULAR HGB CONC 34 g/dL (32.3-35.6); MEAN CORPUSCULAR VOLUME 88.7 fL (75.5-95.3); MONOCYTES # (AUTO) 0.6 K/uL (0.1-1.30); NEUTROPHILS % (AUTO) 75.8 % (38.5-71.5); PLATELET COUNT (AUTO) 335 K/uL (179-408); RED BLOOD CELL COUNT(AUTO) 2.81 MIL/uL (3.63-4.92); RED CELL DISTRIBUTION WIDTH 14.6 % (12.3-17.7)
[2024-02-16 07:53] LABS: DIFFERENTIAL COMMENT 1
[2024-02-16 07:57] LABS: CALCIUM 7.9 mg/dL (8.5-10.1); CREATININE 3.5 mg/dL (0.6-1.3); POTASSIUM 4.4 mmol/L (3.5-5.1)
[2024-02-16 11:28] VITALS: BP 164/50; TEMP 99; O2SAT 100
[2024-02-16] MEDS: LACTULOSE 20 G/30 ML LIQUID UDC PO ONE (12:40)
[2024-02-16 16:02] VITALS: BP 177/60; TEMP 98.5; O2SAT 97
[2024-02-16 22:00] VITALS: BP 135/55; TEMP 98.5; O2SAT 97
[2024-02-17 06:00] VITALS: BP 140/75; TEMP 98.5; O2SAT 97
[2024-02-17 07:03] LABS: BASOPHILS # (AUTO) 0.2 K/UL (0.0-0.2); BASOPHILS % (AUTO) 2.6 % (0.0-2.0); EOSINOPHILS # (AUTO) 0.2 K/uL (0.0-0.7); EOSINOPHILS % (AUTO) 2.7 % (0.0-7.0); HEMATOCRIT 24.1 % (31.2-41.9); HEMOGLOBIN 8.3 g/dL (10.9-14.3); LYMPHOCYTES # (AUTO) 0.9 K/uL (0.8-4.8); LYMPHOCYTES % (AUTO) 12.3 % (20.5-51.5); MEAN CORPUSCULAR HEMOGLOBIN 30.2 uug (24.7-32.8); MEAN CORPUSCULAR HGB CONC 34 g/dL (32.3-35.6); MEAN CORPUSCULAR VOLUME 88.1 fL (75.5-95.3); MONOCYTES # (AUTO) 0.6 K/uL (0.1-1.30); MONOCYTES % (AUTO) 7.3 % (0.0-11.0); NEUTROPHILS # (AUTO) 5.7 K/uL (1.8-8.9); NEUTROPHILS % (AUTO) 75.1 % (38.5-71.5); PLATELET COUNT (AUTO) 274 K/uL (179-408); RED BLOOD CELL COUNT(AUTO) 2.74 MIL/uL (3.63-4.92); RED CELL DISTRIBUTION WIDTH 14.6 % (12.3-17.7); WHITE BLOOD COUNT (AUTO) 7.5 K/uL (3.8-11.8)
[2024-02-17 07:13] LABS: CALCIUM 7.7 mg/dL (8.5-10.1); CREATININE 2.2 mg/dL (0.6-1.3); POTASSIUM 3.5 mmol/L (3.5-5.1)
[2024-02-17 07:33] LABS: DIFFERENTIAL COMMENT 1
[2024-02-17 08:00] VITALS: BP 116/47; TEMP 97.6; O2SAT 98
[2024-02-17] MEDS ORDERED: MIRALAX 17 GM POWD.PACK PO SCH (09:00)
[2024-02-17 12:00] VITALS: BP 122/42; TEMP 97; O2SAT 98
[2024-02-17 16:00] VITALS: BP 116/47; TEMP 97.6; O2SAT 98
[2024-02-17 21:00] VITALS: BP 170/59; TEMP 97.7; O2SAT 100
[2024-02-17 21:12] VITALS: O2SAT 98
[2024-02-18 05:45] VITALS: BP 102/39; TEMP 97.6; O2SAT 99
[2024-02-18 06:36] LABS: BASOPHILS # (AUTO) 0.2 K/UL (0.0-0.2); BASOPHILS % (AUTO) 2.5 % (0.0-2.0); EOSINOPHILS # (AUTO) 0.2 K/uL (0.0-0.7); HEMATOCRIT 24.9 % (31.2-41.9); HEMOGLOBIN 8.6 g/dL (10.9-14.3); LYMPHOCYTES % (AUTO) 12.9 % (20.5-51.5); MEAN CORPUSCULAR HEMOGLOBIN 30.5 uug (24.7-32.8); MEAN CORPUSCULAR HGB CONC 35 g/dL (32.3-35.6); MEAN CORPUSCULAR VOLUME 88.4 fL (75.5-95.3); MONOCYTES # (AUTO) 0.7 K/uL (0.1-1.30); MONOCYTES % (AUTO) 9.3 % (0.0-11.0); NEUTROPHILS # (AUTO) 5.4 K/uL (1.8-8.9); NEUTROPHILS % (AUTO) 72.3 % (38.5-71.5); PLATELET COUNT (AUTO) 301 K/uL (179-408); RED BLOOD CELL COUNT(AUTO) 2.82 MIL/uL (3.63-4.92); RED CELL DISTRIBUTION WIDTH 14.8 % (12.3-17.7); WHITE BLOOD COUNT (AUTO) 7.4 K/uL (3.8-11.8)
[2024-02-18 06:47] LABS: CALCIUM 7.4 mg/dL (8.5-10.1); CREATININE 3.3 mg/dL (0.6-1.3); DIFFERENTIAL COMMENT 1; POTASSIUM 3.9 mmol/L (3.5-5.1)
[2024-02-18 08:00] VITALS: BP 96/42; TEMP 97.6; O2SAT 99
[2024-02-18 12:00] VITALS: BP 91/45; TEMP 97.8; O2SAT 99
[2024-02-18 16:00] VITALS: BP 127/52; TEMP 97.6; O2SAT 96
[2024-02-18 20:00] VITALS: BP 164/54; TEMP 98.3; O2SAT 100
[2024-02-19] VITALS (8 sets, daily range): BP systolic 101–174; BP diastolic 42–72; TEMP 98–98.9; O2SAT 98–99
[2024-02-19 07:03] LABS: BASOPHILS # (AUTO) 0.2 K/UL (0.0-0.2); BASOPHILS % (AUTO) 2.2 % (0.0-2.0); EOSINOPHILS # (AUTO) 0.2 K/uL (0.0-0.7); EOSINOPHILS % (AUTO) 2.9 % (0.0-7.0); HEMATOCRIT 25.5 % (31.2-41.9); HEMOGLOBIN 8.8 g/dL (10.9-14.3); LYMPHOCYTES # (AUTO) 0.9 K/uL (0.8-4.8); LYMPHOCYTES % (AUTO) 10.8 % (20.5-51.5); MEAN CORPUSCULAR HEMOGLOBIN 30.3 uug (24.7-32.8); MEAN CORPUSCULAR HGB CONC 34 g/dL (32.3-35.6); MONOCYTES # (AUTO) 0.7 K/uL (0.1-1.30); MONOCYTES % (AUTO) 8.8 % (0.0-11.0); NEUTROPHILS # (AUTO) 6.1 K/uL (1.8-8.9); NEUTROPHILS % (AUTO) 75.3 % (38.5-71.5); PLATELET COUNT (AUTO) 276 K/uL (179-408); RED BLOOD CELL COUNT(AUTO) 2.89 MIL/uL (3.63-4.92); RED CELL DISTRIBUTION WIDTH 14.9 % (12.3-17.7); WHITE BLOOD COUNT (AUTO) 8.1 K/uL (3.8-11.8)
[2024-02-19 07:22] LABS: DIFFERENTIAL COMMENT 1
[2024-02-19 07:37] LABS: CALCIUM 7.7 mg/dL (8.5-10.1); CREATININE 2.2 mg/dL (0.6-1.3); POTASSIUM 3.7 mmol/L (3.5-5.1)
[2024-02-19] MEDS: METOCLOPRAMIDE HCL 5 MG TABLET PO SCH (18:29)
[2024-02-20 07:26] LABS: BASOPHILS # (AUTO) 0.2 K/UL (0.0-0.2); BASOPHILS % (AUTO) 2.9 % (0.0-2.0); EOSINOPHILS # (AUTO) 0.2 K/uL (0.0-0.7); EOSINOPHILS % (AUTO) 3.2 % (0.0-7.0); HEMATOCRIT 26.7 % (31.2-41.9); LYMPHOCYTES # (AUTO) 1.1 K/uL (0.8-4.8); LYMPHOCYTES % (AUTO) 14.6 % (20.5-51.5); MEAN CORPUSCULAR HGB CONC 34 g/dL (32.3-35.6); MEAN CORPUSCULAR VOLUME 88.7 fL (75.5-95.3); MONOCYTES # (AUTO) 0.7 K/uL (0.1-1.30); MONOCYTES % (AUTO) 9.2 % (0.0-11.0); NEUTROPHILS # (AUTO) 5.3 K/uL (1.8-8.9); NEUTROPHILS % (AUTO) 70.1 % (38.5-71.5); PLATELET COUNT (AUTO) 291 K/uL (179-408); RED BLOOD CELL COUNT(AUTO) 3.01 MIL/uL (3.63-4.92); WHITE BLOOD COUNT (AUTO) 7.5 K/uL (3.8-11.8)
[2024-02-20 07:38] LABS: CALCIUM 7.7 mg/dL (8.5-10.1); CREATININE 3.1 mg/dL (0.6-1.3); DIFFERENTIAL COMMENT 1; POTASSIUM 4.5 mmol/L (3.5-5.1)
[2024-02-20 07:49] VITALS: BP 102/36; TEMP 98.2; O2SAT 99
[2024-02-20 08:00] VITALS: BP 94/37; TEMP 97.6; O2SAT 97
[2024-02-20 12:00] VITALS: BP 114/37; TEMP 98.2; O2SAT 97
[2024-02-20 16:00] VITALS: BP 157/46; TEMP 97.8; O2SAT 97
[2024-02-20 20:41] VITALS: BP 153/57; TEMP 98; O2SAT 99
[2024-02-21 06:00] VITALS: BP 106/52; TEMP 98.6; O2SAT 99
[2024-02-21 07:28] LABS: BASOPHILS # (AUTO) 0.2 K/UL (0.0-0.2); BASOPHILS % (AUTO) 2.7 % (0.0-2.0); EOSINOPHILS # (AUTO) 0.3 K/uL (0.0-0.7); EOSINOPHILS % (AUTO) 4.1 % (0.0-7.0); HEMATOCRIT 24.2 % (31.2-41.9); HEMOGLOBIN 8.2 g/dL (10.9-14.3); LYMPHOCYTES # (AUTO) 1.2 K/uL (0.8-4.8); LYMPHOCYTES % (AUTO) 15.8 % (20.5-51.5); MEAN CORPUSCULAR HEMOGLOBIN 30.1 uug (24.7-32.8); MEAN CORPUSCULAR HGB CONC 34 g/dL (32.3-35.6); MEAN CORPUSCULAR VOLUME 88.7 fL (75.5-95.3); MONOCYTES # (AUTO) 0.7 K/uL (0.1-1.30); MONOCYTES % (AUTO) 9.7 % (0.0-11.0); NEUTROPHILS # (AUTO) 5.1 K/uL (1.8-8.9); NEUTROPHILS % (AUTO) 67.7 % (38.5-71.5); PLATELET COUNT (AUTO) 254 K/uL (179-408); RED BLOOD CELL COUNT(AUTO) 2.73 MIL/uL (3.63-4.92); WHITE BLOOD COUNT (AUTO) 7.6 K/uL (3.8-11.8)
[2024-02-21 07:39] LABS: CALCIUM 7.8 mg/dL (8.5-10.1); CREATININE 3.7 mg/dL (0.6-1.3); POTASSIUM 4.9 mmol/L (3.5-5.1)
[2024-02-21 07:42] LABS: DIFFERENTIAL COMMENT 1
[2024-02-21 11:15] VITALS: BP 130/62; TEMP 98; O2SAT 98
[2024-02-21 15:59] VITALS: BP 157/53; TEMP 98.2; O2SAT 96
[2024-02-21 19:30] VITALS: BP 168/54; TEMP 98.6; O2SAT 100
[2024-02-22] VITALS (9 sets, daily range): BP systolic 84–167; BP diastolic 37–62; TEMP 97.6–98.2; O2SAT 97–98
[2024-02-22] MEDS: ESCITALOPRAM OXALATE 10 MG TABLET PO SCH (08:58)
[2024-02-22] MEDS: ASPIRIN 81 MG TAB.CHEW PO SCH (08:58)
[2024-02-22] MEDS: TICAGRELOR 90 MG TABLET PO SCH (10:13)
[2024-02-23 05:00] VITALS: BP 128/53; TEMP 98; O2SAT 99
[2024-02-23 06:48] LABS: BASOPHILS # (AUTO) 0.1 K/UL (0.0-0.2); BASOPHILS % (AUTO) 2.2 % (0.0-2.0); EOSINOPHILS # (AUTO) 0.3 K/uL (0.0-0.7); EOSINOPHILS % (AUTO) 4.7 % (0.0-7.0); HEMATOCRIT 26.3 % (31.2-41.9); HEMOGLOBIN 8.8 g/dL (10.9-14.3); LYMPHOCYTES # (AUTO) 0.7 K/uL (0.8-4.8); LYMPHOCYTES % (AUTO) 10.9 % (20.5-51.5); MEAN CORPUSCULAR HEMOGLOBIN 29.8 uug (24.7-32.8); MEAN CORPUSCULAR HGB CONC 34 g/dL (32.3-35.6); MONOCYTES # (AUTO) 0.4 K/uL (0.1-1.30); MONOCYTES % (AUTO) 6.1 % (0.0-11.0); NEUTROPHILS # (AUTO) 4.9 K/uL (1.8-8.9); NEUTROPHILS % (AUTO) 76.1 % (38.5-71.5); PLATELET COUNT (AUTO) 284 K/uL (179-408); RED BLOOD CELL COUNT(AUTO) 2.96 MIL/uL (3.63-4.92); RED CELL DISTRIBUTION WIDTH 14.9 % (12.3-17.7); WHITE BLOOD COUNT (AUTO) 6.4 K/uL (3.8-11.8)
[2024-02-23 06:59] LABS: DIFFERENTIAL COMMENT 1
[2024-02-23 07:05] LABS: CREATININE 1.8 mg/dL (0.6-1.3); MAGNESIUM 1.8 mg/dL (1.8-2.4); PHOSPHOROUS 3.2 mg/dL (2.5-4.9); POTASSIUM 4.1 mmol/L (3.5-5.1)
[2024-02-23 12:00] VITALS: BP 106/64; TEMP 97.9; O2SAT 100
[2024-02-23 12:10] VITALS: O2SAT 98
[2024-02-23 16:00] VITALS: TEMP 97.8; O2SAT 100
[2024-02-23 23:32] VITALS: O2SAT 98
[2024-02-23 23:37] VITALS: BP 127/63; TEMP 98.2; O2SAT 100
[2024-02-24 04:36] VITALS: BP 141/49; TEMP 98.2; O2SAT 100
[2024-02-24 06:58] LABS: BASOPHILS # (AUTO) 0.2 K/UL (0.0-0.2); BASOPHILS % (AUTO) 3.4 % (0.0-2.0); EOSINOPHILS # (AUTO) 0.2 K/uL (0.0-0.7); EOSINOPHILS % (AUTO) 3.7 % (0.0-7.0); HEMATOCRIT 24.8 % (31.2-41.9); HEMOGLOBIN 8.4 g/dL (10.9-14.3); LYMPHOCYTES # (AUTO) 0.9 K/uL (0.8-4.8); LYMPHOCYTES % (AUTO) 14.2 % (20.5-51.5); MEAN CORPUSCULAR HEMOGLOBIN 30.2 uug (24.7-32.8); MEAN CORPUSCULAR HGB CONC 34 g/dL (32.3-35.6); MEAN CORPUSCULAR VOLUME 89.3 fL (75.5-95.3); MONOCYTES # (AUTO) 0.7 K/uL (0.1-1.30); MONOCYTES % (AUTO) 10.1 % (0.0-11.0); NEUTROPHILS # (AUTO) 4.6 K/uL (1.8-8.9); NEUTROPHILS % (AUTO) 68.6 % (38.5-71.5); PLATELET COUNT (AUTO) 284 K/uL (179-408); RED BLOOD CELL COUNT(AUTO) 2.78 MIL/uL (3.63-4.92); RED CELL DISTRIBUTION WIDTH 15.3 % (12.3-17.7); WHITE BLOOD COUNT (AUTO) 6.6 K/uL (3.8-11.8)
[2024-02-24 07:05] LABS: ALBUMIN 2.3 g/dL (3.4-5.0); BILIRUBIN,TOTAL 0.4 mg/dL (0.2-1.0); CALCIUM 8.1 mg/dL (8.5-10.1); CREATININE 2.5 mg/dL (0.6-1.3); DIFFERENTIAL COMMENT 1; MAGNESIUM 2.1 mg/dL (1.8-2.4); PHOSPHOROUS 4.3 mg/dL (2.5-4.9); POTASSIUM 4.8 mmol/L (3.5-5.1); TOTAL PROTEIN, SERUM 6.5 g/dL (6.4-8.2)
[2024-02-24 11:05] VITALS: BP 103/43; TEMP 98.4; O2SAT 97
[2024-02-24 14:56] VITALS: BP 117/45; TEMP 98.4; O2SAT 94
[2024-02-24 20:00] VITALS: BP 100/60; TEMP 98.1; O2SAT 99
[2024-02-25 06:09] VITALS: BP 190/69; TEMP 99; O2SAT 97
[2024-02-25 10:27] VITALS: BP 180/100
[2024-02-25 13:59] VITALS: BP 133/48; TEMP 98.1
[2024-02-25 16:20] VITALS: O2SAT 97
[2024-02-25 17:34] VITALS: BP 177/61; TEMP 98.1
[2024-02-25 20:00] VITALS: BP 148/57; TEMP 99; O2SAT 96
[2024-02-26] VITALS (8 sets, daily range): BP systolic 105–146; BP diastolic 42–69; TEMP 97.8–98.6; O2SAT 97–99
[2024-02-26] MEDS: hydrALAZINE HCL 50 MG TABLET PO SCH (06:42)
[2024-02-26 13:46] LABS: BASOPHILS # (AUTO) 0.2 K/UL (0.0-0.2); BASOPHILS % (AUTO) 2.1 % (0.0-2.0); DIFFERENTIAL COMMENT 0; EOSINOPHILS # (AUTO) 0.1 K/uL (0.0-0.7); EOSINOPHILS % (AUTO) 1.7 % (0.0-7.0); HEMATOCRIT 25.4 % (31.2-41.9); HEMOGLOBIN 8.5 g/dL (10.9-14.3); LYMPHOCYTES # (AUTO) 0.7 K/uL (0.8-4.8); LYMPHOCYTES % (AUTO) 8.8 % (20.5-51.5); MEAN CORPUSCULAR HEMOGLOBIN 30.2 uug (24.7-32.8); MEAN CORPUSCULAR HGB CONC 34 g/dL (32.3-35.6); MEAN CORPUSCULAR VOLUME 89.8 fL (75.5-95.3); MONOCYTES # (AUTO) 0.7 K/uL (0.1-1.30); NEUTROPHILS # (AUTO) 6.5 K/uL (1.8-8.9); NEUTROPHILS % (AUTO) 79.4 % (38.5-71.5); PLATELET COUNT (AUTO) 276 K/uL (179-408); RED BLOOD CELL COUNT(AUTO) 2.83 MIL/uL (3.63-4.92); RED CELL DISTRIBUTION WIDTH 15.2 % (12.3-17.7); WHITE BLOOD COUNT (AUTO) 8.2 K/uL (3.8-11.8)
[2024-02-26 13:56] LABS: CALCIUM 8.2 mg/dL (8.5-10.1); CREATININE 1.5 mg/dL (0.6-1.3); POTASSIUM 3.9 mmol/L (3.5-5.1)
[2024-02-26] MEDS: ATORVASTATIN 40 MG TABLET PO SCH (20:59)
[2024-02-27 00:05] VITALS: O2SAT 98
[2024-02-27 04:20] VITALS: BP 106/41; TEMP 98.9; O2SAT 97
[2024-02-27] MEDS: PANTOPRAZOLE SODIUM 40 MG TABLET.DR PO SCH (06:41)
[2024-02-27] MEDS: ASPIRIN EC 81 MG TABLET.DR PO SCH (08:50)
[2024-02-27 11:56] VITALS: BP 131/53; TEMP 98.9; O2SAT 97
[2024-02-27 16:00] VITALS: BP 144/81; TEMP 98.2; O2SAT 97
[2024-02-27 16:20] VITALS: O2SAT 97
[2024-02-28 06:31] VITALS: BP 109/47
[2024-02-28 15:35] VITALS: TEMP 97.8; O2SAT 97
[2024-02-28 20:24] VITALS: BP 172/64; TEMP 97.8; O2SAT 97
[2024-02-28 21:15] VITALS: O2SAT 97
[2024-02-29 06:23] VITALS: BP 128/45; TEMP 98.9; O2SAT 97
[2024-02-29 11:21] VITALS: BP 141/57; TEMP 98.9; O2SAT 98
[2024-02-29 15:38] VITALS: BP 162/65; TEMP 98.9; O2SAT 97
[2024-02-29 20:00] VITALS: BP 170/62; TEMP 98; O2SAT 98
[2024-03-01 04:13] VITALS: O2SAT 97
[2024-03-01 06:32] VITALS: BP 110/46; TEMP 98.5; O2SAT 96
[2024-03-01 11:50] VITALS: BP 142/60; TEMP 98.7; O2SAT 97
[2024-03-01 16:00] VITALS: BP 200/81; TEMP 97.9; O2SAT 97
[2024-03-01 20:00] VITALS: BP 178/58; TEMP 99.6; O2SAT 96
[2024-03-02 06:00] VITALS: BP 135/55; TEMP 98.7; O2SAT 96
[2024-03-02 11:10] VITALS: BP 141/57; TEMP 98.3; O2SAT 97
== END 2024-03-02 14:00 | DRG 308 ==
LOC: ER 21:23 → TELE3 01-30 03:41 → CCU 02-02 08:46 → TELE3 02-03 18:02 → MEDSURG3 02-07 08:45
PROVIDERS: ADMIT Nurse Practitioner Acute Care; ATTEND Internal Medicine
PROC: 5A1D70Z Performance of Urinary Filtration, Intermittent, Less than 6 Hours Per Day (ICD-10-PCS; principal; 2024-01-30)
PROC: 30233N1 Transfusion of Nonautologous Red Blood Cells into Peripheral Vein, Percutaneous Approach (ICD-10-PCS; 2024-01-31)
PROC: 0QSB04Z Reposition Right Lower Femur with Internal Fixation Device, Open Approach (ICD-10-PCS; 2024-01-31)
PROC: 02HV33Z Insertion of Infusion Device into Superior Vena Cava, Percutaneous Approach (ICD-10-PCS; 2024-02-02)
PROC: B548ZZA Ultrasonography of Superior Vena Cava, Guidance (ICD-10-PCS; 2024-02-02)
PROC: 30243N1 Transfusion of Nonautologous Red Blood Cells into Central Vein, Percutaneous Approach (ICD-10-PCS; 2024-02-02)
PROC: 05HC33Z Insertion of Infusion Device into Left Basilic Vein, Percutaneous Approach (ICD-10-PCS; 2024-02-02)
PROC: 0DB68ZX Excision of Stomach, Via Natural or Artificial Opening Endoscopic, Diagnostic (ICD-10-PCS; 2024-02-06)
DX: S72.401A Unspecified fracture of lower end of right femur, initial encounter for closed fracture (principal); J96.01 Acute respiratory failure with hypoxia; R57.9 Shock, unspecified; K29.71 Gastritis, unspecified, with bleeding; I50.43 Acute on chronic combined systolic (congestive) and diastolic (congestive) heart failure; N18.6 End stage renal disease; D63.1 Anemia in chronic kidney disease; E83.51 Hypocalcemia; S72.414A Nondisplaced unspecified condyle fracture of lower end of right femur, initial encounter for closed fracture; E11.22 Type 2 diabetes mellitus with diabetic chronic kidney disease; W18.30XA Fall on same level, unspecified, initial encounter; Y92.89 Other specified places as the place of occurrence of the external cause; I13.2 Hypertensive heart and chronic kidney disease with heart failure and with stage 5 chronic kidney disease, or end stage renal disease; Z99.2 Dependence on renal dialysis; D62 Acute posthemorrhagic anemia; N25.0 Renal osteodystrophy; E78.5 Hyperlipidemia, unspecified; I25.10 Atherosclerotic heart disease of native coronary artery without angina pectoris; Z95.1 Presence of aortocoronary bypass graft; H54.7 Unspecified visual loss; M15.9 Polyosteoarthritis, unspecified; E11.65 Type 2 diabetes mellitus with hyperglycemia; Z75.1 Person awaiting admission to adequate facility elsewhere; Z91.148 Patient's other noncompliance with medication regimen for other reason; Z88.0 Allergy status to penicillin; Z87.11 Personal history of peptic ulcer disease; Z79.02 Long term (current) use of antithrombotics/antiplatelets
CPT/HCPCS: 36415; 36569; 70030-TC; 70450; 71045; 73551; 73560; 73700; 74018; 76770; 83550; 83605; 83735; 84100; 84443; 84484; 84550; 85018; 85025; 85730; 86706; 86850; 86900; 86901; 86920; 87340; 88313-TC; 88342; 90937; 93307; 97535-GO-CO; A4606; A4649; A4663; A6213; C1713; C1758; C9113; G0378; J0360; J1170; J1644; J1940; J2250; J2270; J2405; J2765; J3010; J3370; J3430; J3490; J7040; J8597; P9016; P9045; P9047; Q9967